=== PATIENT | male | born 1995 | race American Indian/Alaskan Native ===

== ENCOUNTER 2019-09-09 18:03 | Emergency (ER) | payer SELFPAY ==
[2019-09-09 18:10] VITALS: BP 145/82
[2019-09-09] MEDS ORDERED: IBUPROFEN PO ONE (19:26)
--- NOTE | 2019-09-09 19:32 | Emergency Department Report ---
ED ENT HPI - General Chief complaint: Sore Throat Stated complaint: SORE THROAT/PAIN Time Seen by Provider: 09/09/19 19:24 Source: patient Mode of arrival: Ambulatory Limitations: No Limitations - History of Present Illness Initial comments: Mr. Conway is a 24-year-old -[place] male who presents for sore throat and left ear pain 3 days pain is rated at 4 /10 achy with scratchy throat. Patient was seen at urgent care yesterday at present no prednisone Dosepak , states symptoms worsened. Symptoms are exacerbated by swallowing , symptoms are relieved by nothing. MD complaint: sore throat, ear pain Onset/Timin -: days(s) Location: L ear, throat Severity: moderate Severity scale (0 -10): 4 Quality: burning, aching Consistency: constant Improves with: none Worsens with: swallowing, movement Associated Symptoms: fever, pain with swallowing, sore throat - Related Data Previous Rx's Medication Instructions Recorded Last Taken Type Amoxicillin/Potassium Clav 1 each PO BID #20 tablet 09/09/19 Unknown Rx [Augmentin 875-125 Tablet] Dextromethorphan/Benzocaine 1 each PO Q2HR PRN #24 lozenge 09/09/19 Unknown Rx [Cepacol Sorethroat-Cough Jasmyne] Ibuprofen [Motrin 800 MG tab] 800 mg PO Q8HR PRN #30 tablet 09/09/19 Unknown Rx Allergies Allergy/AdvReac Type Severity Reaction Status Date / Time No Known Allergies Allergy Unverified 09/09/19 18:06 ED Dental HPI - General Chief complaint: Sore Throat Stated complaint: SORE THROAT/PAIN Time Seen by Provider: 09/09/19 19:24 Source: patient Mode of arrival: Ambulatory Limitations: No Limitations - Related Data Previous Rx's Medication Instructions Recorded Last Taken Type Amoxicillin/Potassium Clav 1 each PO BID #20 tablet 09/09/19 Unknown Rx [Augmentin 875-125 Tablet] Dextromethorphan/Benzocaine 1 each PO Q2HR PRN #24 lozenge 09/09/19 Unknown Rx [Cepacol Sorethroat-Cough Jasmyne] Ibuprofen [Motrin 800 MG tab] 800 mg PO Q8HR PRN #30 tablet 09/09/19 Unknown Rx Allergies Allergy/AdvReac Type Severity Reaction Status Date / Time No Known Allergies Allergy Unverified 09/09/19 18:06 ED Review of Systems ROS: Stated complaint: SORE THROAT/PAIN Other details as noted in HPI Constitutional: chills, fever Eyes: denies: eye pain, eye discharge, vision change ENT: ear pain, throat pain Respiratory: denies: cough, shortness of breath, wheezing Cardiovascular: denies: chest pain, palpitations Endocrine: no symptoms reported Gastrointestinal: denies: abdominal pain, nausea, diarrhea Genitourinary: denies: urgency, dysuria Musculoskeletal: denies: back pain, joint swelling, arthralgia Skin: denies: rash, lesions Neurological: denies: headache, weakness, paresthesias Psychiatric: denies: anxiety, depression Hematological/Lymphatic: denies: easy bleeding, easy bruising ED Past Medical Hx - Past Medical History Previous Medical History?: Yes Hx Asthma: Yes - Surgical History Past Surgical History?: No - Social History Smoking Status: Never Smoker Substance Use Type: None - Medications Home Medications: Home Medications Medication Instructions Recorded Confirmed Last Taken Type Amoxicillin/Potassium Clav 1 each PO BID #20 tablet 09/09/19 Unknown Rx [Augmentin 875-125 Tablet] Dextromethorphan/Benzocaine 1 each PO Q2HR PRN #24 lozenge 09/09/19 Unknown Rx [Cepacol Sorethroat-Cough Jasmyne] Ibuprofen [Motrin 800 MG tab] 800 mg PO Q8HR PRN #30 tablet 09/09/19 Unknown Rx ED Physical Exam - General Limitations: No Limitations General appearance: alert, in no apparent distress - Head Head exam: Present: atraumatic, normocephalic, normal inspection - Eye Eye exam: Present: normal appearance, PERRL, EOMI Pupils: Present: normal accommodation - ENT ENT exam: Present: mucous membranes moist - Expanded ENT Exam Expanded TM/Canal exam: Erythema: Left TM, Effusion: Left TM, Canal Tenderness: Left TM Mouth exam: Absent: trismus Throat exam: Positive: tonsillar erythema, tonsillomegaly, R peritonsillar mass, L peritonsillar mass, other (uvula midline no stridor no wheezing ). Negative: tonsillar exudate - Neck Neck exam: Present: normal inspection, full ROM, lymphadenopathy. Absent: tenderness, meningismus, thyromegaly - Respiratory Respiratory exam: Present: normal lung sounds bilaterally. Absent: respiratory distress, wheezes, stridor, chest wall tenderness - Cardiovascular Cardiovascular Exam: Present: regular rate, normal rhythm, normal heart sounds. Absent: systolic murmur, diastolic murmur, rubs, gallop - GI/Abdominal GI/Abdominal exam: Present: soft, normal bowel sounds. Absent: distended, tenderness, bruit, hernia - Rectal Rectal exam: Present: deferred - Extremities Exam Extremities exam: Present: normal inspection - Back Exam Back exam: Present: normal inspection, full ROM. Absent: tenderness, CVA tenderness (R), CVA tenderness (L), rash noted - Neurological Exam Neurological exam: Present: alert, oriented X3, CN II-XII intact, normal gait - Psychiatric Psychiatric exam: Present: normal affect, normal mood - Skin Skin exam: Present: warm, dry, intact, normal color. Absent: rash ED Course Vital Signs 09/09/19 18:06 Temperature 98.4 F Pulse Rate 96 H Respiratory 18 Rate Blood Pressure 145/82 O2 Sat by Pulse 96 Oximetry ED Medical Decision Making - Medical Decision Making this is AOM , pharyngitis , URI, plan augmentin, ibuprofen follow up with pcp in 2-3 days. Pt verbalized agreement and understanding with discharge plan. Will be dc'd to home in stable condition at this time. Critical care attestation.: If time is entered above; I have spent that time in minutes in the direct care of this critically ill patient, excluding procedure time. ED Disposition Clinical Impression: AOM (acute otitis media) Qualifiers: Otitis media type: serous Laterality: left Recurrence: non-recurrent Qualified Code(s): H65.02 - Acute serous otitis media, left ear Pharyngitis Qualifiers: Pharyngitis/tonsillitis etiology: unspecified etiology Qualified Code(s): J02.9 - Acute pharyngitis, unspecified URI (upper respiratory infection) Qualifiers: URI type: unspecified viral URI Qualified Code(s): J06.9 - Acute upper respiratory infection, unspecified Disposition: DC-01 TO HOME OR SELFCARE Is pt being admited?: No Does the pt Need Aspirin: No Condition: Stable Instructions: Otitis Media (ED), Pharyngitis (ED), Upper Respiratory Infection (ED) Prescriptions: Amoxicillin/Potassium Clav [Augmentin 875-125 Tablet] 1 each PO BID #20 tablet Dextromethorphan/Benzocaine [Cepacol Sorethroat-Cough Jasmyne] 1 each PO Q2HR PRN #24 lozenge PRN Reason: Pain, Moderate (4-6) Ibuprofen [Motrin 800 MG tab] 800 mg PO Q8HR PRN #30 tablet PRN Reason: Pain, Moderate (4-6) Referrals: TOMMIE JAY MD [Staff Physician] - 3-5 Days Forms: Work/School Release Form(ED) Time of Disposition: 19:38
== END 2019-09-09 20:14 | disposition home or self-care (01) ==
LOC: ED 18:03
DX: J02.9 Acute pharyngitis, unspecified (principal); J06.9 Acute upper respiratory infection, unspecified; J45.909 Unspecified asthma, uncomplicated; H65.02 Acute serous otitis media, left ear; Z79.899 Other long term (current) drug therapy
CPT/HCPCS: 99282

== ENCOUNTER 2019-09-10 04:48 | Inpatient (IN) | payer SELFPAY ==
[2019-09-10] MEDS ORDERED: TORADOL IV ONE (06:16)
[2019-09-10] MEDS ORDERED: CLEOCIN 600 MG/50 mL 600 MG/50 ML BAG IV ONE (06:16)
[2019-09-10] MEDS ORDERED: NACL 0.9% 1000 ML 1,000 ML IV ONE (06:16)
[2019-09-10] MEDS ORDERED: ZOFRAN IV ONE (06:50)
[2019-09-10] MEDS ORDERED: ZOFRAN ONE (06:51)
--- NOTE | 2019-09-10 06:59 | Emergency Department Report ---
ED General Adult HPI - General Chief complaint: Sore Throat Stated complaint: THROAT PAIN Time Seen by Provider: 09/10/19 06:07 Source: patient Mode of arrival: Ambulatory Limitations: No Limitations - History of Present Illness Initial comments: A 33-year-old male with a third visit to a medical provider for left-sided throat pain. He was here on the and was given a prescription for Augmentin. He's been having left sided throat and ear pain. He may have neglected to tell anyone prior that he had an I&D of his throat before I assume for previous peritonsillar abscess. He is not reporting fever or chills. He states he does have some difficulty in swallowing but not actually breathing although he says his "uncomfortable". He has not been coughing. -: Gradual, days(s) Location: mouth Severity scale (0 -10): 8 Quality: aching Consistency: intermittent Improves with: none Worsens with: none Associated Symptoms: denies other symptoms - Related Data Previous Rx's Medication Instructions Recorded Last Taken Type Amoxicillin/Potassium Clav 1 each PO BID #20 tablet 09/09/19 Unknown Rx [Augmentin 875-125 Tablet] Dextromethorphan/Benzocaine 1 each PO Q2HR PRN #24 lozenge 09/09/19 Unknown Rx [Cepacol Sorethroat-Cough Jasmyne] Ibuprofen [Motrin 800 MG tab] 800 mg PO Q8HR PRN #30 tablet 09/09/19 Unknown Rx Allergies Allergy/AdvReac Type Severity Reaction Status Date / Time No Known Allergies Allergy Verified 09/10/19 06:49 ED Review of Systems ROS: Stated complaint: THROAT PAIN Other details as noted in HPI Constitutional: denies: chills, fever Eyes: denies: eye pain, eye discharge, vision change ENT: as per HPI, ear pain, throat pain Respiratory: denies: cough, shortness of breath, wheezing Cardiovascular: denies: chest pain, palpitations Endocrine: no symptoms reported Gastrointestinal: denies: abdominal pain, nausea, diarrhea Genitourinary: denies: urgency, dysuria Musculoskeletal: denies: back pain, joint swelling, arthralgia Skin: denies: rash, lesions Neurological: denies: headache, weakness, paresthesias Psychiatric: denies: anxiety, depression Hematological/Lymphatic: denies: easy bleeding, easy bruising ED Past Medical Hx - Past Medical History Previous Medical History?: Yes Hx Asthma: Yes - Surgical History Past Surgical History?: No - Social History Smoking Status: Never Smoker Substance Use Type: None - Medications Home Medications: Home Medications Medication Instructions Recorded Confirmed Last Taken Type Amoxicillin/Potassium Clav 1 each PO BID #20 tablet 09/09/19 Unknown Rx [Augmentin 875-125 Tablet] Dextromethorphan/Benzocaine 1 each PO Q2HR PRN #24 lozenge 09/09/19 Unknown Rx [Cepacol Sorethroat-Cough Jasmyne] Ibuprofen [Motrin 800 MG tab] 800 mg PO Q8HR PRN #30 tablet 09/09/19 Unknown Rx ED Physical Exam - General Limitations: No Limitations General appearance: alert, in no apparent distress, other (airway is patent no stridor no drooling) - Head Head exam: Present: atraumatic, normocephalic - Eye Eye exam: Present: normal appearance, scleral icterus - ENT ENT exam: Present: mucous membranes moist, TM's normal bilaterally, normal external ear exam, other (there is left tonsillar erythema and edema and at least cellulitis if not peritonsillar abscess) - Neck Neck exam: Present: normal inspection, full ROM, lymphadenopathy. Absent: tenderness, meningismus - Respiratory Respiratory exam: Present: normal lung sounds bilaterally. Absent: respiratory distress - Cardiovascular Cardiovascular Exam: Present: regular rate, normal rhythm. Absent: systolic murmur, diastolic murmur, rubs, gallop - GI/Abdominal GI/Abdominal exam: Present: soft, normal bowel sounds - Rectal Rectal exam: Present: deferred - Extremities Exam Extremities exam: Present: normal inspection - Back Exam Back exam: Present: normal inspection - Neurological Exam Neurological exam: Present: alert, oriented X3 - Psychiatric Psychiatric exam: Present: normal affect, normal mood - Skin Skin exam: Present: warm, dry, intact, normal color. Absent: rash ED Course Vital Signs 09/10/19 09/10/19 09/10/19 04:52 05:20 06:28 Temperature 98.0 F 97.9 F Pulse Rate 95 H 79 Respiratory 18 16 18 Rate Blood Pressure 122/76 Blood Pressure 116/73 [Left] O2 Sat by Pulse 97 97 Oximetry 09/10/19 06:58 Temperature Pulse Rate Respiratory 18 Rate Blood Pressure Blood Pressure [Left] O2 Sat by Pulse Oximetry - Reevaluation(s) Reevaluation #1: Percutaneous drainage of peritonsillar abscess was well tolerated. Patient on clindamycin. Cultures are sent. Discussed with the hospitalist and admitted. 09/10/19 09:05 09/10/19 09:06 - I & D Left Jaw Type of Procedure: Simple Blade Size: needle aspiration Progress: Using Q-tip swabs of 4% lidocaine the peritonsillar area was adequately anesthetized. Using a 12 mL syringe and a 19-gauge 1.5 inch needle the left peritonsillar abscess was aspirated. There was purulent material of natali roximately 7 mL drained with minimal sanguinous material at termination. This procedure was well tolerated. It would appear that the abscess was adequately drained percutaneously. ED Medical Decision Making - Lab Data Result diagrams: 09/10/19 07:05 09/10/19 07:05 Critical care attestation.: If time is entered above; I have spent that time in minutes in the direct care of this critically ill patient, excluding procedure time. ED Disposition Clinical Impression: Peritonsillar abscess Disposition: -09 OP ADMIT IP TO THIS HOSP Is pt being admited?: Yes Does the pt Need Aspirin: No Condition: Stable Time of Disposition: 09:06
--- NOTE | 2019-09-10 07:21 | Cat Scan Report ---
Enhanced CT scan of the neck: INDICATION: L peritonsilar abscess. TECHNIQUE: Contiguous thin cut axial images obtained through the neck following intravenous injection of 100 mL of Omnipaque 300. Sagittal and coronal reconstructions performed by the technologist. All CT scans at this location are performed using CT dose reduction for ALARA by means of automated exposure control . COMPARISON: None available. FINDINGS: Abnormal CT scan. 27 mm (longitudinal) x 21 mm (transverse) x 23 mm (height) sized left peritonsillar abscess is seen. The airway is displaced towards the right side and is narrowed. I do not see extension of the abscess into rolling up machine operator space and parapharyngeal space. MUCOSAL SPACE: Ligamentous changes extending into nasal pharyngeal mucosal space on the left side and into left. Epiglottic space. Larynx and hypopharynx are normal. Infrahyoid neck is normal. LYMPH NODES: Reactive lymph nodes are seen at level 2 and level 3 bilaterally more on the left side. SALIVARY GLANDS: Parotid, submandibular, and visualized sublingual glands are within normal limits. THYROID GLAND: Unremarkable. PARANASAL SINUSES: Retention cyst is seen in the right maxillary sinus. Small amount of fluid accumul ation seen in the right maxillary sinus. SPINE: No significant abnormality of the cervical spine appreciated. VASCULAR STRUCTURES: Vascular structures are grossly normal in appearance. Surrounding soft tissues are otherwise grossly normal. IMPRESSION: Left peritonsillar abscess Signer Name: Gilbert Blackmon MD Signed: 09/10/2019 7:16 AM Workstation Name: [id number]
[2019-09-10 07:22] LABS: Basophils % (Auto) 0.3 % (0.0-1.8); Hematocrit 40.8 % (35.5-45.6); Hemoglobin 12.9 gm/dl (11.8-15.2); Lymphocytes # (Auto) 2.3 K/mm3 (1.2-5.4); Lymphocytes % (Auto) 17.1 % (13.4-35.0); Mean Corpuscular HGB Conc 32 % (32-34); Mean Corpuscular Volume 75 fl (84-94); Monocytes # (Auto) 1.4 K/mm3 (0.0-0.8); Monocytes % (Auto) 10.1 % (0.0-7.3); Platelet Count 157 K/mm3 (140-440); Red Blood Count 5.47 M/mm3 (3.65-5.03); Red Cell Distribution Width 12.7 % (13.2-15.2)
[2019-09-10 07:55] LABS: Alanine Aminotransferase 103 units/L (7-56); Albumin 4.2 g/dL (3.9-5); BUN/Creatinine Ratio 13; Bilirubin,Direct 0.3 mg/dL (0-0.2); Blood Urea Nitrogen 12 mg/dL (9-20); Calcium 8.9 mg/dL (8.4-10.2); Hemolysis Index 0
[2019-09-10] MEDS ORDERED: XYLOCAINE TOPICAL 4% TP ONE ×2 (08:30→08:36)
--- NOTE | 2019-09-10 10:39 | History and Physical Report ---
History of Present Illness Date of examination: 09/10/19 Date of admission: 09/10/19 09:16 Chief complaint: Throat pains History of present illness: Patient is a 24 yo man with a history of asthma who presents to [facility] ED for the second consecutive day with worsening severe constant throbbing left side throat radiating up towards the left ear that begun 3-4 days ago. He went to Urgent care then come here on 09/09/19 and again on 09/10/19. He was found to have a left peritonsillar abscess with was drained by ED physician, Dr. Muller in with approximately 7 cc was expelled and sent for cultures per Dr. Muller. PMH: as hpi PSH: he denies any surgeries SH: he denies tob/etoh/illegal drugs FH: no OP cancers ROS: Constitutional: denies: fever ENT:+ throat or neck pain Respiratory: denies: cough, shortness of breath Cardiovascular: denies: chest pain Endocrine: denies unexplained weight loss or gain Gastrointestinal: denies: abdominal pain, nausea Genitourinary: denies: dysuria Rectal: denies no incontinence, no bleeding, no itching, no discharge Musculoskeletal: denies swelling, myaglia, muscle weakness Skin: denies: rash Neurological: denies: headache Hematological/Lymphatic: denies: easy bleeding or easy bruising Allergic/Immunologic: no urticaria, no allergic rhinitis, no anaphylaxis Psych: denies sadness or hopelessness, SI/HI Medications and Allergies Allergies Allergy/AdvReac Type Severity Reaction Status Date / Time No Known Allergies Allergy Verified 09/10/19 06:49 Home Medications Medication Instructions Recorded Confirmed Last Taken Type Amoxicillin/Potassium Clav 1 each PO BID #20 tablet 09/09/19 Unknown Rx [Augmentin 875-125 Tablet] Dextromethorphan/Benzocaine 1 each PO Q2HR PRN #24 lozenge 09/09/19 Unknown Rx [Cepacol Sorethroat-Cough Jasmyne] Ibuprofen [Motrin 800 MG tab] 800 mg PO Q8HR PRN #30 tablet 09/09/19 Unknown Rx Exam - Physical Exam Narrative exam: Gen: WDWN, NAD, Awake, Alert, Orientated HEENT: NCAT, EOMI, PERRL, OP left tonsil toward enlarged and toward midline, Neck: supple, no adenopathy, no thyromegaly, no JVD CVS/Heart: RRR, normal S1S2, pulses present bilaterally Chest/Lungs: CTA B, Symmetrical chest expansion, good air entry bilaterally GI/Abdomen: soft, NTND, good bowel sounds, no guarding or rebound /Bladder: no suprapubic tenderness, no CVA or paraspinal tenderness Extermity/Skin: no c/c/e, no obvious rash MSK: FROM x 4 Neuro: CN 2-12 grossly intact, no new focal deficits Psych: calm - Constitutional Vitals: Temp Pulse Resp BP Pulse Ox 97.9 F 70 15 136/69 98 09/10/19 05:20 09/10/19 08:30 09/10/19 09:15 09/10/19 09:15 09/10/19 09:15 Results - Labs CBC & Chem 7: 09/10/19 07:05 09/10/19 07:05 Labs: Abnormal lab results 09/10/19 09/10/19 Range/Units 07:05 07:05 WBC 13.5 H (4.5-11.0) K/mm3 RBC 5.47 H (3.65-5.03) M/mm3 MCV 75 L (84-94) fl MCH 24 L (28-32) pg RDW 12.7 L (13.2-15.2) % [place] % (Auto) 10.1 H (0.0-7.3) % [place] # 1.4 H (0.0-0.8) K/mm3 Seg Neutrophils % 72.5 H (40.0-70.0) % Seg Neutrophils # 9.8 H (1.8-7.7) K/mm3 Carbon Dioxide 21 L (22-30) mmol/L Glucose 104 H (75-100) mg/dL Direct Bilirubin 0.3 H (0-0.2) mg/dL ALT 103 H (7-56) units/L Total Protein 8.3 H (6.3-8.2) g/dL Assessment and Plan Patient is a 24 yo man with a history of asthma who presents to [facility] ED for the second consecutive day with worsening severe constant throbbing left side throat radiating up towards the left ear that begun 3-4 days ago. He went to Urgent care then come here on 09/09/19 and again on 09/10/19. He was found to have a left peritonsillar abscess with was drained by ED physician, Dr. Muller in with approximately 7 cc was expelled and sent for cultures per Dr. Muller. He denies difficult swallowing or SOB. * CT neck with contrast IMPRESSION: Left peritonsillar abscess * WBC 13.5 Left peritonsillar abscess s/p drainage: follow culture, treat with IV abx, IVFs and pain medication, needs ENT follow up.
[2019-09-10] MEDS ORDERED: TYLENOL PO PRN (10:44)
[2019-09-10] MEDS ORDERED: ZOFRAN IV PRN (10:44)
[2019-09-10] MEDS: NACL 0.9% 1000 ML 1,000 ML IV SCH ×2 (11:16→21:02)
[2019-09-10] MEDS: CLEOCIN 600 MG/50 mL 600 MG/50 ML BAG IV SCH ×2 (14:48→21:02)
[2019-09-11] MEDS: NACL 0.9% 1000 ML 1,000 ML IV SCH ×2 (07:00→15:14)
[2019-09-11] MEDS: CLEOCIN 600 MG/50 mL 600 MG/50 ML BAG IV SCH ×2 (07:00→15:00)
--- NOTE | 2019-09-11 13:57 | Progress Note ---
Assessment and Plan Assessment and plan: Patient is a 24 yo man with a history of asthma who presents to [facility] ED for the second consecutive day with worsening severe constant throbbing left side throat radiating up towards the left ear that begun 3-4 days ago. He went to Urgent care then come here on 09/09/19 and again on 09/10/19. He was found to have a left peritonsillar abscess with was drained by ED physician, Dr. Muller in with approximately 7 cc was expelled and sent for cultures per Dr. Muller. He denies difficult swallowing or SOB. * CT neck with contrast IMPRESSION: Left peritonsillar abscess * WBC 13.5 Left peritonsillar abscess s/p drainage: follow culture, treat with IV abx, IVFs and pain medication, needs ENT follow up. waiting on oral culture History Interval history: follow up Tonsilitis, still with difficult swallowing, but getting better Hospitalist Physical - Physical exam Narrative exam: Gen: WDWN, NAD, Awake, Alert, Orientated HEENT: NCAT, EOMI, PERRL, OP left tonsil toward enlarged and toward midline, Neck: supple, no adenopathy, no thyromegaly, no JVD CVS/Heart: RRR, normal S1S2, pulses present bilaterally Chest/Lungs: CTA B, Symmetrical chest expansion, good air entry bilaterally GI/Abdomen: soft, NTND, good bowel sounds, no guarding or rebound /Bladder: no suprapubic tenderness, no CVA or paraspinal tenderness Extermity/Skin: no c/c/e, no obvious rash MSK: FROM x 4 Neuro: CN 2-12 grossly intact, no new focal deficits Psych: calm - Constitutional Vitals: Temp Pulse Resp BP Pulse Ox 98.3 F 72 14 116/70 96 09/11/19 11:39 09/11/19 11:39 09/11/19 11:39 09/11/19 11:39 09/11/19 11:39 Results - Labs CBC & Chem 7: 09/10/19 07:05 09/10/19 07:05 Labs: Laboratory Last Values WBC 13.5 K/mm3 (4.5-11.0) H 09/10/19 07:05 RBC 5.47 M/mm3 (3.65-5.03) H 09/10/19 07:05 Hgb 12.9 gm/dl (11.8-15.2) 09/10/19 07:05 Hct 40.8 % (35.5-45.6) 09/10/19 07:05 MCV 75 fl (84-94) L 09/10/19 07:05 MCH 24 pg (28-32) L 09/10/19 07:05 MCHC 32 % (32-34) 09/10/19 07:05 RDW 12.7 % (13.2-15.2) L 09/10/19 07:05 Plt Count 157 K/mm3 (140-440) 09/10/19 07:05 Lymph % (Auto) 17.1 % (13.4-35.0) 09/10/19 07:05 [place] % (Auto) 10.1 % (0.0-7.3) H 09/10/19 07:05 Eos % (Auto) 0.0 % (0.0-4.3) 09/10/19 07:05 Baso % (Auto) 0.3 % (0.0-1.8) 09/10/19 07:05 Lymph # 2.3 K/mm3 (1.2-5.4) 09/10/19 07:05 [place] # 1.4 K/mm3 (0.0-0.8) H 09/10/19 07:05 Eos # 0.0 K/mm3 (0.0-0.4) 09/10/19 07:05 Baso # 0.0 K/mm3 (0.0-0.1) 09/10/19 07:05 Seg Neutrophils % 72.5 % (40.0-70.0) H 09/10/19 07:05 Seg Neutrophils # 9.8 K/mm3 (1.8-7.7) H 09/10/19 07:05 Sodium 141 mmol/L (137-145) 09/10/19 07:05 Potassium 3.6 mmol/L (3.6-5.0) 09/10/19 07:05 Chloride 104.3 mmol/L (98-107) 09/10/19 07:05 Carbon Dioxide 21 mmol/L (22-30) L 09/10/19 07:05 Anion Gap 19 mmol/L 09/10/19 07:05 BUN 12 mg/dL (9-20) 09/10/19 07:05 Creatinine 0.9 mg/dL (0.8-1.5) 09/10/19 07:05 Estimated GFR > 60 ml/min 09/10/19 07:05 BUN/Creatinine Ratio 13 % 09/10/19 07:05 Glucose 104 mg/dL (75-100) H 09/10/19 07:05 Lactic Acid 1.20 mmol/L (0.7-2.0) 09/10/19 07:05 Calcium 8.9 mg/dL (8.4-10.2) 09/10/19 07:05 Total Bilirubin 0.90 mg/dL (0.1-1.2) 09/10/19 07:05 Direct Bilirubin 0.3 mg/dL (0-0.2) H 09/10/19 07:05 Indirect Bilirubin 0.6 mg/dL 09/10/19 07:05 AST 32 units/L (5-40) 09/10/19 07:05 ALT 103 units/L (7-56) H 09/10/19 07:05 Alkaline Phosphatase 65 units/L (35-129) 09/10/19 07:05 Total Protein 8.3 g/dL (6.3-8.2) H 09/10/19 07:05 Albumin 4.2 g/dL (3.9-5) 09/10/19 07:05 Albumin/Globulin Ratio 1.0 % 09/10/19 07:05 Group A Strep Rapid Negative (Negative) 09/10/19 Unknown Active Medications - Current Medications Current Medications: Generic Name Dose Route Start Last Admin Trade Name Freq PRN Reason Stop Dose Admin Acetaminophen 650 mg 09/10/19 10:44 Tylenol PO Q6H PRN Non Cardiac Pain or Temp>100.5 Heparin Sodium (Porcine) 5,000 unit 09/11/19 22:00 Heparin SUB-Q Q12HR ALFREDO Clindamycin HCl 600 mg in 50 mls @ 100 mls/hr 09/10/19 14:00 09/11/19 07:00 Cleocin 600 Mg/50 Ml IV 100 mls/hr Q8HR ALFREDO Administration Protocol Sodium Chloride 1,000 mls @ 100 mls/hr 09/10/19 11:00 09/11/19 07:00 Nacl 0.9% 1000 Ml IV 100 mls/hr DIRECT ALFREDO Administration Ondansetron HCl 4 mg 09/10/19 10:44 Zofran IV Q4H PRN Nausea And Vomiting
[2019-09-11] MEDS: SOLU-Medrol IV SCH ×2 (15:00→22:13)
--- NOTE | 2019-09-11 15:45 | Consultation ---
History of Present Illness - Reason for Consult Consult date: 09/11/19 Left peritonsillar abscess Requesting physician: MARY PANTOJA - History of Present Illness The patient is a 24-year-old male who was admitted to the hospital yesterday with complaints of left-sided throat pain and sore throat. It began about a week ago, initially went to urgent care and was given Medrol Dosepak. Persistent symptoms, he came to the ER and was discharged on oral Augmentin, how ever with persistent symptoms he came back to the ER. CT showed findings concerning for left peritonsillar abscess. This was internally drained by the ED physician and about 7 mL purulence reportedly was drained. He feels slightly better. Currently on IV antibiotics. Review of Systems: General: no fevers,chills or rigors HEENT: no new visual disturbance Respiratory: No cough, sputum, hemoptysis or shortness of breath Cardiovascular: No chest pain, syncope Gastrointestinal: No nausea, vomiting or diarrhea Genitourinary: No dysuria or hematuria Musculoskeletal: L neck pain . no back pain Neurologic: No headaches, seizures Hematologic: No easy bruising or bleeding Endocrine: No night sweats or acute weight loss Skin: negative for rash, jaundice Psychiatric: No suicidal or homicidal ideation Medications and Allergies Allergies Allergy/AdvReac Type Severity Reaction Status Date / Time No Known Allergies Allergy Verified 09/10/19 06:49 Home Medications Medication Instructions Recorded Confirmed Last Taken Type Amoxicillin/Potassium Clav 1 each PO BID #20 tablet 09/09/19 09/10/19 1 Day Ago Rx [Augmentin 875-125 Tablet] ~09/09/19 Dextromethorphan/Benzocaine 1 each PO Q2HR PRN #24 lozenge 09/09/19 09/10/19 1 Day Ago Rx [Cepacol Sorethroat-Cough Jasmyne] ~09/09/19 Ibuprofen [Motrin 800 MG tab] 800 mg PO Q8HR PRN #30 tablet 09/09/19 09/10/19 1 Day Ago Rx ~09/09/19 Active Meds: Active Medications Acetaminophen (Tylenol) 650 mg PO Q6H PRN PRN Reason: Non Cardiac Pain or Temp>100.5 Last Admin: 09/11/19 15:08 Dose: 650 mg Documented by: Heparin Sodium (Porcine) (Heparin) 5,000 unit SUB-Q Q12HR ALFREDO Clindamycin HCl (Cleocin 600 Mg/50 Ml) 600 mg in 50 mls @ 100 mls/hr IV Q8HR ALFREDO; Protocol Last Admin: 09/11/19 15:00 Dose: 100 mls/hr Documented by: Sodium Chloride (Nacl 0.9% 1000 Ml) 1,000 mls @ 100 mls/hr IV DIRECT ALFREDO Last Admin: 09/11/19 15:14 Dose: 100 mls/hr Documented by: Methylprednisolone Sodium Succinate (Solu-Medrol) 40 mg IV Q8HR ALFREDO Last Admin: 09/11/19 15:00 Dose: 40 mg Documented by: Ondansetron HCl (Zofran) 4 mg IV Q4H PRN PRN Reason: Nausea And Vomiting Physical Examination - Physical Exam Narrative exam: Physical Exam: Constitutional: Alert, cooperative. No acute distress Head, Ears, Nose: Normocephalic, atraumatic. External ears, nose normal Eyes: Conjunctivae/corneas clear. No icterus. No ptosis. Neck: Supple, no meningeal signs. Left neck tenderness Oral: swelling of left tonsil seen, exam limited due to tongue Cardiovascular: S1, S2 normal. Respiratory: Good air entry, clear to auscultation bilaterally GI: Soft, non-tender; bowel sounds normal. No peritoneal signs Musculoskeletal: No pedal edema, no cyanosis. Skin: No rash or abscess Hem/Lymphatic: No palpable cervical or supraclavicular nodes. No lymphangitis Psych: Mood ok. Affect normal Neurological: Awake, alert, oriented. No gross abnormality - Constitutional Vitals: Vital Signs Temp Pulse Resp BP Pulse Ox 98.3 F 72 14 116/70 96 09/11/19 11:39 09/11/19 11:39 09/11/19 11:39 09/11/19 11:39 09/11/19 11:39 Temperature -Last 24 Hours Temperature 98.3 F Temperature 98.0 F Temperature 98.4 F Temperature 99.8 F Results - Labs CBC & Chem 7: 09/10/19 07:05 09/10/19 07:05 Assessment and Plan Cultures: 09/10/2019 blood culture: In process 09/10/2019 tonsillar abscess: Culture in progress A/P: 24-year-old male with: 1) Peritonsillar abscess: noted on CT neck. internally drained by the ED physician and about 7 mL purulence reportedly was drained. Treat empirically with IV Unasyn, discharge on PO Augmentin (already has prescription filled). Needs ENT eval. Recs: Empiric IV Unasyn, when improved discharge on PO Augmentin x 10d (already has prescription filled). ENT eval, not available here, recommended outpatient follow up to the patient Masood Acevedo MD, FACP [facility] C: [phone] O: [phone] F: [phone]
[2019-09-11] MEDS: UNASYN/NS 3 GM/100 ML 3 GM/100 ML BAG IV SCH (19:19)
[2019-09-11] MEDS: HEPARIN SUB-Q SCH (22:13)
[2019-09-12] MEDS: UNASYN/NS 3 GM/100 ML 3 GM/100 ML BAG IV SCH ×3 (01:52→11:28)
[2019-09-12] MEDS: NACL 0.9% 1000 ML 1,000 ML IV SCH (01:58)
[2019-09-12 05:46] LABS: Hematocrit 41.9 % (35.5-45.6); Hemoglobin 13.3 gm/dl (11.8-15.2); Mean Corpuscular HGB Conc 32 % (32-34); Mean Corpuscular Volume 75 fl (84-94); Platelet Count 189 K/mm3 (140-440); Red Blood Count 5.62 M/mm3 (3.65-5.03); Red Cell Distribution Width 12.6 % (13.2-15.2)
[2019-09-12 06:09] LABS: BUN/Creatinine Ratio 14; Blood Urea Nitrogen 10 mg/dL (9-20); Calcium 9.1 mg/dL (8.4-10.2); Hemolysis Index 8
[2019-09-12] MEDS: SOLU-Medrol IV SCH (06:26)
[2019-09-12] MEDS: HEPARIN SUB-Q SCH (11:31)
[2019-09-12 12:49] VITALS: BP 110/66
--- NOTE | 2019-09-12 13:20 | Discharge Summary ---
Providers - Providers Date of Admission: 09/10/19 09:16 Date of discharge: 09/12/19 Attending physician: EH BENITEZ 09/11/19 13:59 Consult to Physician [CONS] Routine Comment: Consulting Provider: FLORENTINO AVILA Physician Instructions: Reason For Exam: peritonsillar abscess Primary care physician: CHIP FRIER Hospitalization Condition: Good Hospital course: Agent presented with. Tonsillar abscess. Patient had I&D in the ER presented to for IV antibiotics. And await culture data. Patient no lid had any pain any fever. Was able to swallow tolerate by mouth. Patient has Augmentin and only received one tablet. Can be discharged on Augmentin dose. Follow-up culture data was negative unremarkable. Growth 48 hours. Disposition: - TO HOME OR SELFCARE - Discharge Diagnoses (1) Peritonsillar abscess Status: Acute Core Measure Documentation - Palliative Care Palliative Care/ Comfort Measures: Not Applicable - Core Measures Any of the following diagnoses?: none Exam - Constitutional Vitals: Temp Pulse Resp BP Pulse Ox 98.1 F 75 20 110/66 96 09/12/19 11:55 09/12/19 11:55 09/12/19 11:55 09/12/19 11:55 09/12/19 11:55 General appearance: Present: no acute distress, well-nourished - EENT Eyes: Present: PERRL ENT: hearing intact, clear oral mucosa, other (resolved tonsillar hypertrophy) - Neck Neck: Present: supple, normal ROM - Respiratory Respiratory effort: normal Respiratory: bilateral: CTA - Cardiovascular Heart Sounds: Present: S1 & S2. Absent: rub, click - Extremities Extremities: pulses symmetrical, No edema Peripheral Pulses: within normal limits - Abdominal General gastrointestinal: Present: soft, non-tender, non-distended, normal bowel sounds Male genitourinary: Present: normal - Integumentary Integumentary: Present: clear, warm, dry - Musculoskeletal Musculoskeletal: gait normal, strength equal bilaterally - Psychiatric Psychiatric: appropriate mood/affect, intact judgment & insight - Neurologic Neurologic: CNII-XII intact, moves all extremities Plan Activity: no restrictions Diet: regular Follow up with: PRIMARY CARE, [Primary Care Provider] - 3-5 Days
--- NOTE | 2019-09-12 14:01 | Progress Note ---
Assessment and Plan Cultures: 09/10/2019 blood culture: no growth 09/10/2019 tonsillar abscess: Gram stain with GPC. Group A culture negative. A/P: 24-year-old male with: 1) Peritonsillar abscess: noted on CT neck. internally drained by the ED physician and about 7 mL purulence reportedly was drained. Treated empirically with IV Unasyn, discharge on PO Augmentin (already has prescription filled). Needs ENT eval. Recs: PO Augmentin x 10d (already has prescription filled) ENT eval as outpatient Masood Acevedo MD, FACP [facility] C: [phone] O: [phone] F: [phone] Subjective Date of service: 09/12/19 Interval history: Feeling better today. No fever. Swallowing also improved. Pain controlled. Objective - Exam Narrative Exam: Physical Exam: Constitutional: Alert, cooperative. No acute distress Head, Ears, Nose: Normocephalic, atraumatic. External ears, nose normal Eyes: Conjunctivae/corneas clear. No icterus. No ptosis. Neck: Supple, no meningeal signs. Left neck tenderness, mild Oral: swelling of left tonsil seen Cardiovascular: S1, S2 normal. Respiratory: Good air entry, clear to auscultation bilaterally GI: Soft, non-tender; bowel sounds normal. No peritoneal signs Musculoskeletal: No pedal edema, no cyanosis. Skin: No rash or abscess Hem/Lymphatic: No palpable cervical or supraclavicular nodes. No lymphangitis Psych: Mood ok. Affect normal Neurological: Awake, alert, oriented. No gross abnormality - Constitutional Vitals: Vital Signs Temp Pulse Resp BP Pulse Ox 98.1 F 75 20 110/66 96 09/12/19 11:55 09/12/19 11:55 09/12/19 11:55 09/12/19 11:55 09/12/19 11:55 Temperature -Last 24 Hours Temperature 98.1 F Temperature 97.8 F Temperature 97.5 F Temperature 98.2 F - Labs CBC & Chem 7: 09/12/19 05:10 09/12/19 05:10 Labs: Abnormal lab results 09/12/19 09/12/19 Range/Units 05:10 05:10 RBC 5.62 H (3.65-5.03) M/mm3 MCV 75 L (84-94) fl MCH 24 L (28-32) pg RDW 12.6 L (13.2-15.2) % Carbon Dioxide 21 L (22-30) mmol/L Creatinine 0.7 L (0.8-1.5) mg/dL Glucose 141 H (75-100) mg/dL
== END 2019-09-12 14:50 | disposition home or self-care (01) | DRG 153 ==
LOC: ED 04:48 → 3A 09:16
PROVIDERS: ADMIT Internal Medicine; ATTEND Internal Medicine
PROC: 0C9P3ZZ Drainage of Tonsils, Percutaneous Approach (ICD-10-PCS; principal; 2019-09-10)
DX: J36 Peritonsillar abscess (principal); J45.909 Unspecified asthma, uncomplicated; J35.1 Hypertrophy of tonsils; Z79.899 Other long term (current) drug therapy
CPT/HCPCS: 36415; 70491; 80048; 80076; 82140; 85025; 85027; 87040; 87116; 87430; 96365; 96375; G0378; J0295; J1644; J1885; J2405; J2920; J7030; Q9967

== ENCOUNTER 2021-01-05 07:35 | Emergency (ER) | payer SELFPAY ==
[2021-01-05 07:50] VITALS: BP 159/75
--- NOTE | 2021-01-05 08:05 | Emergency Department Report ---
Chief Complaint: Nausea/Vomiting/Diarrhea Stated Complaint: FEVER Time Seen by Provider: 01/05/21 08:00 - HPI History of Present Illness: 25-year-old -[place] male with no past medical history except asthma. Presents to the emergency room for 1 week history of intermittent fever intermittent nausea and vomiting fatigue. Patient states he last took Tylenol 2 days ago. Patient reports that he took a Covid test on Wednesday results was released negative on Wednesday. Patient does admit to having Covid positive contact. Patient states he is able to drink and able to eat crackers but not much of an appetite. He has tried [id number] cold and flu medications. - Exam Vital Signs: Vital Signs 01/05/21 07:49 Temperature 100.1 F H Pulse Rate 105 H Respiratory 20 Rate Blood Pressure 159/75 O2 Sat by Pulse 95 Oximetry Physical Exam: Gen: alert oriented NAD Cardic: regular rate and rhythm no murmurs appreciated Resp: Clear to auscultation bilateral no wheezing no rales or rhonchi. Abdomen: Soft nontender nondistended normal bowel sounds. Mini neuro: Alert and oriented time 3 Crainal nerve II-IIX intact MSE screening note: Focused history and physical exam performed. Due to findings the following was ordered: 25-year-old -[place] male with no past medical history except asthma. Presents to the emergency room for 1 week history of intermittent fever intermittent nausea and vomiting fatigue. Patient states he last took Tylenol 2 days ago. Patient reports that he took a Covid test on Wednesday results was released negative on Wednesday. Patient does admit to having Covid positive contact. Patient states he is able to drink and able to eat crackers but not much of an appetite. He has tried [id number] cold and flu medications. ED Disposition for MSE Disposition: Z MED SCREENING EXAM-LEFT Is pt being admited?: No Does the pt Need Aspirin: No Condition: Stable Additional Instructions: Your symptoms appear most consistent with a nonspecific viral syndrome. How ever, given this current pandemic, COVID-19 is in the differential of possibilities. Despite your previous negative COVID-19 test, I do recommend repeat outpatient Covid 19 testing. In the meantime, isolate/quarantine yourself and stay away from anyone who is elderly, immunocompromised or chronically ill. You can use ibuprofen every 6-8 hours and Tylenol every 4-8 hours, using the dosing on the back of the bottle, as needed for any fever or body aches. Return to the emergency department with any worsening of your symptoms, development of chest pain or shortness of breath, or with any acute distress. Referrals: [facility] [Provider Group] - 3-5 Days Forms: Work/School Release Form(ED)
== END 2021-01-05 08:57 | disposition left against medical advice (07) ==
LOC: ED 07:35
DX: R50.9 Fever, unspecified (principal); Z53.21 Procedure and treatment not carried out due to patient leaving prior to being seen by health care provider